=== PATIENT | female | born 1990 | race Caucasian/White ===

== ENCOUNTER 2018-05-07 01:00 | Inpatient (IN) | payer BC, OTHER ==
[2018-05-07] MEDS ORDERED: KETOROLAC TROMETHAMINE INJ 30 MG/ML VIAL IV ONE (01:16)
[2018-05-07] MEDS ORDERED: ONDANSETRON INJ 4 MG/2 ML VIAL IV ONE (01:16)
[2018-05-07] MEDS ORDERED: SODIUM CHLORIDE 0.9% 1000ML 1,000 ML IVS ONE ×3 (01:16→13:25)
--- NOTE | 2018-05-07 01:20 | ED.PDOC ---
History of Present Illness - General Chief Complaint: GI Problem Stated Complaint: "gallbladder pain", sharp pains Time Seen by Provider: 05/07/18 01:15 Information Source: patient Exam Limitations: no limitations - History of Present Illness Initial Comments: patient comes in today with 3 hour history of severe right upper quadrant abdominal pain. The pain is sharp and radiates to the epigastric area with associated nausea and emesis. Patient states the pain is severe, 10/10. A week ago patient had a similar attack and was diagnosed with cholelithiasis and pancreatitis. She was admitted at another facility overnight. At that time the pain subsided and the pancreatitis resolved. The patient was not happy with the surgeon at that facility and had wanted to have her gallbladder removed here instead. Patient was doing well until about 10 PM this evening when she had another attack. Patient has had no fever but some subjective chills. Patient had normal bowel movement today with no diarrhea or constipation. Patient is otherwise healthy and has no medical history. Patient is on control but is currently on her menses and is 10 months . Patient does not smoke, drink, or take illicit substances. Abdominal Pain Onset Location: RUQ Pain Radiation: epigastric Quality: severe, sharpness Timing/Duration: 1-3 hours Improving Factors: nothing Worsening Factors: nothing Associated Symptoms: fever/chills, nausea/vomiting Review of Systems - Review of Systems Constitutional: States: chills. Denies: diaphoresis, fever, malaise EENTM: States: no symptoms reported. Denies: eye pain, ear pain, nose pain, throat pain Respiratory: States: no symptoms reported. Denies: cough, short of breath, wheezing Cardiology: States: no symptoms reported. Denies: chest pain, edema, palpitations, syncope Gastrointestinal/Abdominal: States: see HPI, abdominal pain, nausea. Denies: constipation, diarrhea, vomiting Genitourinary: States: no symptoms reported Musculoskeletal: States: no symptoms reported Skin: States: no symptoms reported Neurological: States: no symptoms reported Past Medical History (General) - Patient Medical History Hx Asthma: No Hx Diabetes: No Hx of HIV: No Surgical History: appendectomy, other - Vaccination History Hx Tetanus, Diphtheria Vaccination: No Hx Influenza Vaccination: No Hx Pneumococcal Vaccination: No - Social History Hx Tobacco Use: No Hx Alcohol Use: No Hx Depression: No - Female History Patient is a Female of Child Bearing Age (10 -59 yrs old): Yes Family Medical History - Family History Mother Family History: Unknown Physical Exam - Physical Exam General Appearance: Alert, Obvious distress Eyes, Ears, Nose, Throat Exam: PERRL/EOMI, TMs normal, pharynx normal Neck: non-tender, full range of motion, supple, normal inspection Respiratory: chest non-tender, lungs clear, normal breath sounds, no respiratory distress Cardiovascular/Chest: normal peripheral pulses, no edema, no gallop, no JVD, no murmur Peripheral Pulses: No deficit Gastrointestinal/Abdominal: other - soft, distended with normal BS, TTP to the RUQ and epigastrum with no rebound or guarding Extremity: normal range of motion Neurologic: alert, oriented x 3 Progress - Progress Progress: 05/07/18 02:13 Patient Name: ASHLEY HERNANDEZ Gender: Female Date of : 1990 Referring Physician: DON BOYLE Organization: [facility] Accession Number: [id number] Requested Date: May 07, 2018 01:16 Report Status: Final Requested Procedure: 1 Procedure Description: Abdomen w/o Contrast Modality: CT Findings Reporting MD: Ari Sanchez Fellow MD: Not available Dictation Time: Security Guard Supervisor: Not available Tableau Lead Date: CT ABDOMEN WITHOUT IV CONTRAST Exam date: 05/07/2018 1:16 AM CDT Comparison: None Indication: Right upper quadrant pain, known cholelithiasis Technique: Multiple helical axial images were obtained through the abdomen without intravenous contrast. Sagittal and coronal reformatted images are reviewed as well. All CT scans at this facility use dose modulation, iterative reconstruction, and/or weight-based dosing when appropriate to reduce radiation dose to as low as reasonably achievable. Findings: Lung bases: Unremarkable. Liver: Homogenous attenuation is demonstrated. Liver appears mildly enlarged. Gallbladder/biliary: Gallbladder appears unremarkable. No calcified gallstones. No evidence of biliary ductal dilatation. Pancreas: Unremarkable. Spleen: Unremarkable. Adrenals: Unremarkable. Kidneys and ureters: No evidence of renal or ureteral stones. No hydronephrosis. Bowel: No evidence of bowel obstruction. No bowel wall thickening. Peritoneum: No free air. No significant free fluid. Lymph nodes: Unremarkable. Radiology [employer] [address] [place] [address], [place] T [phone] F [phone] [email or web address] Report exported on May 07, 2018 02:13:17 -0500 - Page 2 of 2 Vasculature: A few surgical clips near the right iliac vessels are noted. Soft tissues: Unremarkable. Bones: Unremarkable. Impression: No obvious acute process within the abdomen 05/07/18 01:16 Sodium Chloride 0.9% 1000ML [Ns 1000 ml] 1,000 ml IVS ONCE 05/07/18 01:20 AMYLASE Stat COMPLETE METABOLIC PROFILE Stat LIPASE Stat Laboratory Results WBC 9.3 K/mm3 (4.8-10.8) 05/07/18 01:20 RBC 4.69 M/mm3 (4.20-5.40) 05/07/18 01:20 Hgb 13.0 gm/dL (12.0-16.0) 05/07/18 01:20 Hct 38.7 % (36.0-47.0) 05/07/18 01:20 MCV 82.5 fl (81.0-99.0) 05/07/18 01:20 MCH 27.8 pg (27.0-31.0) 05/07/18 01:20 MCHC 33.7 g/dL (33.0-37.0) 05/07/18 01:20 RDW 13.6 % (11.5-14.5) 05/07/18 01:20 Plt Count 168 K/mm3 (130-400) a 05/07/18 01:20 MPV 10.0 fl (7.40-10.4) 05/07/18 01:20 Absolute Neuts (auto) 6.40 K/uL (1.8-6.8) 05/07/18 01:20 Absolute Lymphs (auto) 2.40 K/uL (1.0-3.4) 05/07/18 01:20 Absolute Monos (auto) 0.40 K/uL (0.2-0.8) 05/07/18 01:20 Absolute Eos (auto) 0.10 K/uL (0.0-0.4) 05/07/18 01:20 Absolute Basos (auto) 0.10 K/uL (0.0-0.1) 05/07/18 01:20 Neutrophils % 68.5 % (42.0-78.0) 05/07/18 01:20 Lymphocytes % 25.1 % (20.0-50.0) 05/07/18 01:20 Monocytes % 4.6 % (2.0-9.0) 05/07/18 01:20 Eosinophils % 0.8 % (1.0-5.0) L 05/07/18 01:20 Basophils % 1.0 % (0.0-2.0) 05/07/18 01:20 Sodium 140 mmol/L (135-145) 05/07/18 01:20 Potassium 3.6 mmol/L (3.6-5.0) 05/07/18 01:20 Chloride 104 mmol/L (101-111) 05/07/18 01:20 Carbon Dioxide 27 mmol/L (21-31) 05/07/18 01:20 Anion Gap 12.6 (12-18) 05/07/18 01:20 BUN 17 mg/dL (7-18) 05/07/18 01:20 Creatinine 0.71 mg/dL (0.6-1.3) 05/07/18 01:20 BUN/Creatinine Ratio 23.9 (10-20) H 05/07/18 01:20 Random Glucose 112 mg/dL (70-105) H 05/07/18 01:20 Serum Osmolality 281.7 mOsm/L (275-295) 05/07/18 01:20 Calcium 9.9 mg/dL (8.4-10.2) 05/07/18 01:20 Total Bilirubin 0.5 mg/dL (0.2-1.0) 05/07/18 01:20 AST 68 IU/L (10-42) H 05/07/18 01:20 ALT 39 IU/L (10-60) 05/07/18 01:20 Alkaline Phosphatase 93 IU/L (42-121) 05/07/18 01:20 Serum Total Protein 7.5 gm/dL (6.4-8.2) 05/07/18 01:20 Albumin 4.5 g/dl (3.2-5.5) 05/07/18 01:20 Globulin 3.0 gm/dL (2.3-3.5) 05/07/18 01:20 Albumin/Globulin Ratio 1.5 (1.1-1.9) 05/07/18 01:20 Amylase 834 U/L (28-100) H* 05/07/18 01:20 Serum HCG, Qual Negative 05/07/18 01:20 05/07/18 02:24 called for admission for pancreatitis. Departure - Departure Clinical Impression: Pancreatitis Qualifiers: Chronicity: acute Pancreatitis type: biliary Acute pancreatitis complication: no infection or necrosis Qualified Code(s): K85.10 - Biliary acute pancreatitis without necrosis or infection Cholelithiasis without obstruction Qualifiers: Cholelithiasis location: gallbladder Cholecystitis presence: without cholecystitis Qualified Code(s): K80.20 - Calculus of gallbladder without cholecystitis without obstruction Disposition: Admit Patient Condition: Fair Departure Forms: ED Discharge - Pt. Copy, Patient Portal Self Enrollment Diet: other Referrals: JACKI CASON [Primary Care Provider] - 1-2 Weeks
--- NOTE | 2018-05-07 02:11 | CT ---
CT ABDOMEN WITHOUT IV CONTRAST Exam date: 05/07/2018 1:16 AM CDT Comparison: None Indication: Right upper quadrant pain, known cholelithiasis Technique: Multiple helical axial images were obtained through the abdomen without intravenous contrast. Sagittal and coronal reformatted images are reviewed as well. All CT scans at this facility use dose modulation, iterative reconstruction, and/or weight-based dosing when appropriate to reduce radiation dose to as low as reasonably achievable. Findings: Lung bases: Unremarkable. Liver: Homogenous attenuation is demonstrated. Liver appears mildly enlarged. Gallbladder/biliary: Gallbladder appears unremarkable. No calcified gallstones. No evidence of biliary ductal dilatation. Pancreas: Unremarkable. Spleen: Unremarkable. Adrenals: Unremarkable. Kidneys and ureters: No evidence of renal or ureteral stones. No hydronephrosis. Bowel: No evidence of bowel obstruction. No bowel wall thickening. Peritoneum: No free air. No significant free fluid. Lymph nodes: Unremarkable. Vasculature: A few surgical clips near the right iliac vessels are noted. Soft tissues: Unremarkable. Bones: Unremarkable. Impression: No obvious acute process within the abdomen. Electronically signed by: Ari Sanchez MD 05/07/2018 2:09 AM CDT
[2018-05-07] MEDS ORDERED: fentaNYL CITRATE INJ 50 MCG/ML AMP IV ONE (02:17)
[2018-05-07] MEDS ORDERED: ONDANSETRON INJ 4 MG/2 ML VIAL IV PRN (02:42)
[2018-05-07] MEDS ORDERED: MORPHINE SULFATE INJ 10 MG/ML VIAL IV PRN (02:42)
[2018-05-07] MEDS ORDERED: SODIUM CHLORIDE 0.9% (FLUSH) 10 ML SYG IV PRN (02:42)
[2018-05-07] MEDS ORDERED: KETOROLAC TROMETHAMINE INJ 30 MG/ML VIAL IV PRN (02:50)
[2018-05-07] MEDS ORDERED: PROMETHAZINE HCL INJ 25 MG in SODIUM CHLORIDE 0.9% 50ML 50 ML IVPB PRN (02:58)
[2018-05-07] MEDS ORDERED: IV SET AND CAP CHANGE INJ INJ SCH (03:00)
[2018-05-07] MEDS: KCL 20MEQ/0.45% NS 1,000 ML IVS PRN ×3 (03:15→13:02)
[2018-05-07 10:23] VITALS: O2SAT 99
[2018-05-07 11:10] VITALS: BP 99/63; TEMP 97.1
--- NOTE | 2018-05-07 11:16 | US ---
EXAM DESCRIPTION: Abdomen,Limited: ULTRASOUND. CLINICAL HISTORY: acute pancreatitis; hx cholelithiasis. COMPARISON: CT abdomen 05/07/2018. Ultrasound abdomen April 26, 2018. TECHNIQUE: Transabdominal scannin-dimensional and Doppler modes. FINDINGS: Gallbladder: Contracted with multiple echogenic stones with acoustic shadowing. Largest measurable stones are 5.5 and 5.4 mm. No fluid around the gallbladder. No wall thickening. 1.6 mm. Non-tender with transducer pressure. Common bile duct: caliber 4.0 mm within normal limits. Liver: Normal echogenicity; contour liver capsule smooth where seen. No fluid around the liver. Intrahepatic biliary ducts normal caliber. Doppler hepatopedal flow portal vein.. Long axis right lobe 21.9 cm. No ascites. Pancreas: normal size and echogenicity. Duct not seen. Proximal abdominal aorta: 1.6 cm. Normal caliber.. IVC: visualized and normal caliber. Right kidney: long axis measures 11.2 cm. Normal Echogenicity. Normal cortical thickness. No hydronephrosis IMPRESSION: 1. Gallbladder contracted with multiple stones representing cholelithiasis. No wall thickening or surrounding fluid. Nontender with transducer pressure. 2. Moderate hepatomegaly with normal echogenicity. Normal intrahepatic ducts. Normal vascularity. Smooth capsule. No ascites. 3. Normal ultrasound of the pancreas and right kidney. Normal caliber of the proximal aorta and the IVC. Electronically signed by: Josep Ricketts MD 05/07/2018 11:15 AM CDT
--- NOTE | 2018-05-24 11:38 | HP ---
SUPERVISING PHYSICIAN: Ryan Cheney M.D. DISCHARGE DIAGNOSES: 1. Acute pancreatitis secondary to cholelithiasis clinically improving with pancreatic enzymes returning to baseline status. No signs of cholecystitis. HISTORY OF PRESENT ILLNESS: Ms. Walters is a 27 year-old female patient that presented to the Emergency Room initially on 05/07/18 with complaints of gallbladder pain. She had noted that 3 hours prior to admission she had severe right upper quadrant abdominal pain. She noted the pain was sharp and radiating up to epigastric region and resulted in some nausea and emesis. She noted that she had had similar pain a week ago while at work and was worked up at [facility] as an inpatient and found to have cholelithiasis and pancreatitis. At that time, she was admitted overnight. Her pain subsided. Pancreatitis resolved. The patient was not happy with the surgeon at [facility] and requested to be discharged to have consultation with Dr. Strong in the coming week. The patient noted that she was doing well since discharge up until about 10:00 on the evening of admission when she had another attack. She denied any fevers, chills, any significant alcohol usage. She had just eaten supper with chicken fajitas after which time she started experiencing more pains. The patient has no significant medical history. She is 10 months and is on control, and is currently on her menses. LABORATORY: Workup in the [facility] showed she had a normal white count. No left shift. Chemistries showed normal electrolytes with a bilirubin of 0.5, AST was slightly elevated at 68. Initial amylase showed to be 834 with lipase at 2558. Serum HCG was negative. Repeat pancreatic enzymes showed that by discharge her enzymes were returning to baseline status with her lipase being at 843. There were no microbiology specimens submitted. RADIOLOGY: Radiology initially in the [facility] she had an abdominal CT and per radiology interpretation there was no obvious acute process within the abdomen. The pancreas was noted to be normal on ultrasound. Her common bile duct was within normal limits at 4 mm. There was no wall thickening. Stones measured between 5.5 and 5.4 mm. HOSPITAL COURSE: The patient in the [facility] was given Toradol with improvement of her symptoms and she was pain free, however given her history Dr. Carrero requested the patient be placed in Observation for treatment of acute pancreatitis with anticipation of having a consultation with Dr. Strong. She was started on fluids, made NPO after admission and on the morning of admission had an ultrasound completed. Again the ultrasound showed the gallbladder was contracted with multiple stones representing cholelithiasis but no wall thickening or surrounding fluid. There was note of non-tenderness on pressure. The pancreas was noted to be normal on ultrasound. Her common bile duct was within normal limits at 4 mm. There was no wall thickening. Stones measured between 5.5 and 5.4 mm. After ultrasound, the patient was continued on fluids and allowed to eat lunch. Before that, her enzymes were once repeated at lunch showing that her lipase had begun to come down from 2558 to 1457. Amylase had slightly increased up to 1330. The patient was without any pain and without any symptoms. No nausea or vomiting. Was not requiring any pain management. She was ambulating without any problems and she had tolerated lunch. After lunch at 5:00, once again pancreatic enzymes were collected and it was showing to return to baseline with lipase being at 843 and amylase going down at 890. The patient again was without any symptoms. Was requiring no pain management and was felt to be clinically stable. After discussion with Dr. Strong who was not assistant plant control operator at time of admission and no surgical crew available over the weekend as well as there is no assistant plant control operator until Thursday, Dr. Strong was in agreement that the patient, if she was showing no signs or symptoms of acute pancreatitis and was tolerating a fat free diet, could be discharged home to be seen in consultation on Thursday in the office. ASSESSMENT: 1. Acute pancreatitis secondary to cholelithiasis with pancreatic enzymes returning to normal limits with no signs of acute pancreatitis at time of discharge. 2. Cholelithiasis as noted on repeat sonogram of the gallbladder with a normal common bile duct and no signs of acute cholecystitis. 3. Ten months on menses. PLAN: The patient is showing to be clinically stable and again her enzymes returning to baseline status was felt clinically well enough to be discharged. She was discharged with instructions to encourage fluids to prevent dehydration. She was to call Dr. Strong's office on Thursday to schedule a followup appointment. She was told to return to the [facility] should she have returning symptoms. Diet at discharge was absolutely no fat diet. Activity is increase as tolerated. Medications at discharge included: 1. Toradol 10 mg tablets every 4 hours as needed for pain. 2. Nexium [id number]. Condition at discharge was stable and improved. #[id number] [facility]
--- NOTE | 2018-05-24 16:20 | DS ---
SUPERVISING PHYSICIAN: Ryan Cheney M.D. DISCHARGE DIAGNOSES: 1. Acute pancreatitis secondary to cholelithiasis clinically improving with pancreatic enzymes returning to baseline status. No signs of cholecystitis. HISTORY OF PRESENT ILLNESS: Ms. Walters is a 27 year-old female patient that presented to the Emergency Room initially on 05/07/18 with complaints of gallbladder pain. She had noted that 3 hours prior to admission she had severe right upper quadrant abdominal pain. She noted the pain was sharp and radiating up to epigastric region and resulted in some nausea and emesis. She noted that she had had similar pain a week ago while at work and was worked up at [place] as an inpatient and found to have cholelithiasis and pancreatitis. At that time, she was admitted overnight. Her pain subsided. Pancreatitis resolved. The patient was not happy with the surgeon at [facility] and requested to be discharged to have consultation with Dr. Strong in the coming week. The patient noted that she was doing well since discharge up until about 10:00 on the evening of admission when she had another attack. She denied any fevers, chills, any significant alcohol usage. She had just eaten supper with chicken fajitas after which time she started experiencing more pains. The patient has no significant medical history. She is 10 months and is on control, and is currently on her menses. LABORATORY: Workup in the E. R. showed she had a normal white count. No left shift. Chemistries showed normal electrolytes with a bilirubin of 0.5, AST was slightly elevated at 68. Initial amylase showed to be 834 with lipase at 2558. Serum HCG was negative. Repeat pancreatic enzymes showed that by discharge her enzymes were returning to baseline status with her lipase being at 843. There were no microbiology specimens submitted. RADIOLOGY: Radiology initially in the E. R., she had an abdominal CT and per radiology interpretation there was no obvious acute process within the abdomen. The pancreas was noted to be normal on ultrasound. Her common bile duct was within normal limits at 4 mm. There was no wall thickening. Stones measured between 5.5 and 5.4 mm. HOSPITAL COURSE: The patient in the E. R. was given Toradol with improvement of her symptoms and she was pain free, however given her history Dr. Carrero requested the patient be placed in Observation for treatment of acute pancreatitis with anticipation of having a consultation with Dr. Strong. She was started on fluids, made NPO after admission and on the morning of admission had an ultrasound completed. Again the ultrasound showed the gallbladder was contracted with multiple stones representing cholelithiasis but no wall thickening or surrounding fluid. There was note of non-tenderness on pressure. The pancreas was noted to be normal on ultrasound. Her common bile duct was within normal limits at 4 mm. There was no wall thickening. Stones measured between 5.5 and 5.4 mm. After ultrasound, the patient was continued on fluids and allowed to eat lunch. Before that, her enzymes were once repeated at lunch showing that her lipase had begun to come down from 2558 to 1457. Amylase had slightly increased up to 1330. The patient was without any pain and without any symptoms. No nausea or vomiting. Was not requiring any pain management. She was ambulating without any problems and she had tolerated lunch. After lunch at 5:00, once again pancreatic enzymes were collected and it was showing to return to baseline with lipase being at 843 and amylase going down at 890. The patient again was without any symptoms. Was requiring no pain management and was felt to be clinically stable. After discussion with Dr. Strong who was not substation designer at time of admission and no surgical crew available over the weekend as well as there is no substation designer until Thursday, Dr. Strong was in agreement that the patient, if she was showing no signs or symptoms of acute pancreatitis and was tolerating a fat free diet, could be discharged home to be seen in consultation on Thursday in the office. ASSESSMENT: 1. Acute pancreatitis secondary to cholelithiasis with pancreatic enzymes returning to normal limits with no signs of acute pancreatitis at time of discharge. 2. Cholelithiasis as noted on repeat sonogram of the gallbladder with a normal common bile duct and no signs of acute cholecystitis. 3. Ten months on menses. PLAN: The patient is showing to be clinically stable and again her enzymes returning to baseline status was felt clinically well enough to be discharged. She was discharged with instructions to encourage fluids to prevent dehydration. She was to call Dr. Strong's office on Thursday to schedule a followup appointment. She was told to return to the E. R. should she have returning symptoms. Diet at discharge was absolutely no fat diet. Activity is increase as tolerated. Medications at discharge included: 1. Toradol 10 mg tablets every 4 hours as needed for pain. 2. Nexium [id number]. Condition at discharge was stable and improved. #[id number] [facility]
--- NOTE | 2018-05-26 23:26 | HP ---
SUPERVISING PHYSICIAN: Ryan Cheney M.D. CHIEF COMPLAINT: Acute abdominal pain. HISTORY OF PRESENT ILLNESS: Ms. Walters is a 27 year-old female patient that presented to the Emergency Room with complaints of gallbladder pain. She had noted that 3 hours prior she had severe right upper quadrant abdominal pain. She noted the pain was sharp and radiating up to epigastric region and resulted in some nausea and emesis. She noted that she had had similar pain a week ago while at work and was worked up at [facility] as an inpatient and found to have cholelithiasis and pancreatitis. At that time, she was admitted overnight. Her pain subsided. Pancreatitis resolved. The patient was not happy with the surgeon at [facility] and requested to be discharged to have consultation with Dr. Strong in the coming week. The patient noted that she was doing well since discharge up until about 2200 when she had another attack. She denied any fevers, chills, any significant alcohol usage. She had just eaten supper which she states was chicken fajitas after which time she started experiencing more pains. The patient has no other significant medical history but she is 10 months and is on control, and is currently on her menses. PAST MEDICAL HISTORY: 1. History of pancreatitis. 2. Cholecystitis. PAST SURGICAL HISTORY: No surgical history listed. HOME MEDICATIONS: No chronic medications. ALLERGIES: NO KNOWN ALLERGIES. FAMILY HISTORY: Noncontributory. SOCIAL HISTORY: Mrs. Walters is living in [facility]. 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 She has never smoked tobacco nad drinks ralrey on at social occasions. She denies using illicit drugs. REVIEW OF SYSTEMS: CONSTITUTIONAL: Denied any fevers, chills or general malaise. HEENT: No headache, sore throat, nasal congestion, ear aches. RESPIRATORY: No shortness of breath, cough or wheezing. CARDIOVASCULAR: No chest pains, palpitations or syncopal episodes. GASTROINTESTINAL: As noted in History of Present Illness. Acute right upper quadrant pain on admission. GENITOURINARY: No dysuria, hematuria, polyuria or other urinary symptoms. MUSCULOSKELETAL: No complaints. NEUROLOGIC: No syncopal episodes. No ataxia. No seizures. No other neurological deficits reported. PHYSICAL EXAMINATION: VITAL SIGNS: Temperature 97.8, pulse 90, blood pressure 123/68, respirations 18 , satting 99% on room air. GENERAL: On admission to the Medical/Surgical floor, the patient appeared to be comfortable in no acute distress. Well hydrated, well nourished. HEENT: Tympanic membranes are clear bilaterally. Oropharynx is pink and moist without any lesions. NECK: Supple, non-tender with full range of motion. There is no jugular venous distention. CHEST: Lungs are clear to auscultation without any rhonchi, wheezing or rales. CARDIOVASCULAR: Regular rate and rhythm without appreciable murmurs, gallops, or rubs. ABDOMEN: Soft, nondistended with positive bowel sounds. There was some mild tenderness to palpation in the right upper quadrant and epigastrium but no rebound or no guarding. EXTREMITIES: No clubbing, cyanosis or edema. NEUROLOGIC: She is alert and oriented times three. LABORATORY: CBC on admission showed a normal white count at 9,300 as well as hemoglobin 13, hematocrit 30.7, platelet count 168,000. Differential showed to be without any shift. Electrolytes on admission were normal. Liver functions showed just an elevated alkaline phosphatase at 68. Her amylase was elevated at 834 Lipase is elevated at 2558. Serum HCG being negative. RADIOLOGY: Abdominal CT prior to admission to the Emergency Room per radiology interpretation showed no obvious acute process in the abdomen. She has an abdominal ultrasound p[ending. ASSESSMENT: 1. Acute pancreatitis secondary to cholelithiasis with pancreatic enzymes returning to normal limits with no signs acute clinical signs of pancreatitis. 2. Chronic cholelithiasis with concerns for acute cholecystis. 3. Ten months on menses. PLAN: The patient is going to be placed in Observation for concern for acute cholecystitis versus pancreatitis. On admission to the Medical/Surgical floor the patient was without any symptoms. Shewill be started on a clear liquid diet in the morning and advanced throughout the day.if tolerating diet without any nausea or vomiting. . Will continue to monitor the patient and should she continue to show stability, the plan is to discharger her home with continued outpatient management to followup with Dr. Strong on Thursday after discharge. Anticipate stay to be less than 24 hours and until discharge, will continue to monitor and treat appropriately. #[id number] [facility]
--- NOTE | 2018-05-26 23:30 | DS ---
SUPERVISING PHYSICIAN: Ryan Cheney M.D. DISCHARGE DIAGNOSES: 1. Acute pancreatitis secondary to cholelithiasis clinically improving with pancreatic enzymes returning to baseline status. No signs of cholecystitis. HISTORY OF PRESENT ILLNESS: Ms. Walters is a 27 year-old female patient that presented to the Emergency Room initially on 05/07/18 with complaints of gallbladder pain. She had noted that 3 hours prior to admission she had severe right upper quadrant abdominal pain. She noted the pain was sharp and radiating up to epigastric region and resulted in some nausea and emesis. She noted that she had had similar pain a week ago while at work and was worked up at [place] as an inpatient and found to have cholelithiasis and pancreatitis. At that time, she was admitted overnight. Her pain subsided. Pancreatitis resolved. The patient was not happy with the surgeon at [place] and requested to be discharged to have consultation with Dr. Strong in the coming week. The patient noted that she was doing well since discharge up until about 10:00 on the evening of admission when she had another attack. She denied any fevers, chills, any significant alcohol usage. She had just eaten supper with chicken fajitas after which time she started experiencing more pains. The patient has no significant medical history. She is 10 months and is on control, and is currently on her menses. LABORATORY: Workup in the E. R. showed she had a normal white count. No left shift. Chemistries showed normal electrolytes with a bilirubin of 0.5, AST was slightly elevated at 68. Initial amylase showed to be 834 with lipase at 2558. Serum HCG was negative. Repeat pancreatic enzymes showed that by discharge her enzymes were returning to baseline status with her lipase being at 843. There were no microbiology specimens submitted. RADIOLOGY: Radiology initially in the E. R., she had an abdominal CT and per radiology interpretation there was no obvious acute process within the abdomen. The pancreas was noted to be normal on ultrasound. Her common bile duct was within normal limits at 4 mm. There was no wall thickening. Stones measured between 5.5 and 5.4 mm. HOSPITAL COURSE: The patient in the E. R. was given Toradol with improvement of her symptoms and she was pain free, however given her history Dr. Carrero requested the patient be placed in Observation for treatment of acute pancreatitis with anticipation of having a consultation with Dr. Strong. She was started on fluids, made NPO after admission and on the morning of admission had an ultrasound completed. Again the ultrasound showed the gallbladder was contracted with multiple stones representing cholelithiasis but no wall thickening or surrounding fluid. There was note of non-tenderness on pressure. The pancreas was noted to be normal on ultrasound. Her common bile duct was within normal limits at 4 mm. There was no wall thickening. Stones measured between 5.5 and 5.4 mm. After ultrasound, the patient was continued on fluids and allowed to eat lunch. Before that, her enzymes were once repeated at lunch showing that her lipase had begun to come down from 2558 to 1457. Amylase had slightly increased up to 1330. The patient was without any pain and without any symptoms. No nausea or vomiting. Was not requiring any pain management. She was ambulating without any problems and she had tolerated lunch. After lunch at 5:00, once again pancreatic enzymes were collected and it was showing to return to baseline with lipase being at 843 and amylase going down at 890. The patient again was without any symptoms. Was requiring no pain management and was felt to be clinically stable. After discussion with Dr. Strong who was not business operations coordinator at time of admission and no surgical crew available over the weekend as well as there is no business operations coordinator until Thursday, Dr. Strong was in agreement that the patient, if she was showing no signs or symptoms of acute pancreatitis and was tolerating a fat free diet, could be discharged home to be seen in consultation on Thursday in the office. ASSESSMENT: 1. Acute pancreatitis secondary to cholelithiasis with pancreatic enzymes returning to normal limits with no signs of acute pancreatitis at time of discharge. 2. Cholelithiasis as noted on repeat sonogram of the gallbladder with a normal common bile duct and no signs of acute cholecystitis. 3. Ten months on menses. PLAN: The patient is showing to be clinically stable and again her enzymes returning to baseline status was felt clinically well enough to be discharged. She was discharged with instructions to encourage fluids to prevent dehydration. She was to call Dr. Strong's office on Thursday to schedule a followup appointment. She was told to return to the E. R. should she have returning symptoms. Diet at discharge was absolutely no fat diet. Activity is increase as tolerated. Medications at discharge included: 1. Toradol 10 mg tablets every 4 hours as needed for pain. 2. Nexium [id number]. Condition at discharge was stable and improved. #[id number] and [id number] [facility]
== END 2018-05-07 18:15 | disposition home or self-care (01) | DRG 440 ==
LOC: ER 01:00 → OBSVTOIN 02:40 → MS 02:40
PROVIDERS: ADMIT Nurse Practitioner Family; ATTEND Nurse Practitioner Family
DX: K85.10 Biliary acute pancreatitis without necrosis or infection (principal); K80.20 Calculus of gallbladder without cholecystitis without obstruction; Z79.3 Long term (current) use of hormonal contraceptives

== ENCOUNTER 2018-05-14 21:17 | Emergency (ER) | payer BC ==
--- NOTE | 2018-05-14 21:26 | ED.PDOC ---
History of Present Illness - General Chief Complaint: Abdominal Pain Time Seen by Provider: 05/14/18 21:24 Information Source: RN notes reviewed, Vital Signs reviewed Exam Limitations: no limitations Additional Information: 27 YEAR OLD PRESENTS WITH ABDOMINAL PAIN AND INTER SCAPULAR PAIN SINCE THIS EVENING SHE HAS KNOWN HISTORY OF GALL STONES AND CBD STONES HAD BEEN ADMITTED TWICE FOR PANCREATITIS IN [facility] FEW MONTHS DENIES FEVER CHILLS OR DYURIA - History of Present Illness Abdominal Pain Onset Location: RUQ Pain Radiation: back Quality: moderate Timing/Duration: 1 hour Improving Factors: nothing Worsening Factors: nothing Associated Symptoms: back pain, nausea/vomiting Review of Systems - Review of Systems Constitutional: States: no symptoms reported EENTM: States: no symptoms reported Respiratory: States: no symptoms reported Cardiology: States: no symptoms reported Gastrointestinal/Abdominal: States: see HPI Genitourinary: States: no symptoms reported Musculoskeletal: States: no symptoms reported Skin: States: no symptoms reported Neurological: States: no symptoms reported Endocrine: States: no symptoms reported Past Medical History (General) - Patient Medical History Hx Seizures: No Hx Stroke: No Hx Asthma: No Hx of COPD: No Hx Congestive Heart Failure: No Hx Pacemaker: No Hx Hypertension: No Hx Diabetes: No Hx of HIV: No Hx MRSA: No - Vaccination History Hx Tetanus, Diphtheria Vaccination: No Hx Influenza Vaccination: No Hx Pneumococcal Vaccination: No - Social History Hx Tobacco Use: No Hx Alcohol Use: No Hx Substance Use: No Hx Depression: No Hx Physical Abuse: No Hx Emotional Abuse: No Family Medical History - Family History Mother Family History: Unknown Living Status: Still Living Hx Family Asthma: No Hx Family Congestive Heart Failure: No Hx Family Hypertension: No Hx Family Stroke: No Hx Cardiac Disease: No Hx Family Diabetes: No Hx Family Cancer: Yes - Colon tumor Age of Onset (years of age): 56 Father Living Status: Still Living Hx Family Asthma: No Hx Family Congestive Heart Failure: No Hx Family Hypertension: Yes Hx Family Stroke: No Hx Cardiac Disease: No Hx Family Diabetes: No Hx Family Cancer: No Physical Exam - Physical Exam General Appearance: Alert, Anxious Eyes, Ears, Nose, Throat Exam: PERRL/EOMI, normal ENT inspection, TMs normal, pharynx normal Neck: non-tender, full range of motion, supple, normal inspection Respiratory: chest non-tender, lungs clear, normal breath sounds, no respiratory distress Cardiovascular/Chest: normal peripheral pulses, regular rate, rhythm, no edema Peripheral Pulses: 2+ Gastrointestinal/Abdominal: normal bowel sounds, soft, guarding, tenderness Back Exam: normal inspection, no CVA tenderness, no vertebral tenderness Extremity: normal range of motion, non-tender, normal inspection Skin Exam: normal color, warm/dry Progress - Results/Orders Results/Orders: Laboratory Tests 05/14/18 05/14/18 21:18 21:18 WBC 10.0 RBC 4.63 Hgb 12.9 Hct 38.5 MCV 83.2 MCH 27.8 MCHC 33.4 RDW 14.2 Plt Count 193 MPV 9.4 Absolute Neuts (auto) 6.30 Absolute Lymphs (auto) 2.80 Absolute Monos (auto) 0.70 Absolute Eos (auto) 0.10 Absolute Basos (auto) 0.10 Neutrophils % 63.1 Lymphocytes % 28.6 Monocytes % 6.5 Eosinophils % 0.7 L Basophils % 1.1 Sodium 139 Potassium 3.6 Chloride 104 Carbon Dioxide 28 Anion Gap 10.6 L BUN 15 Creatinine 0.65 BUN/Creatinine Ratio 23.1 H Random Glucose 97 Serum Osmolality 278.3 Calcium 9.6 Total Bilirubin 0.4 AST 45 H D ALT 41 Alkaline Phosphatase 111 Serum Total Protein 7.3 Albumin 4.3 Globulin 3.0 Albumin/Globulin Ratio 1.4 Amylase 60 Lipase [address] BLANCA WILL KEEP HER ON CLEAR LIQUIDS TILL SURGERY Departure - Departure Clinical Impression: Gall bladder stones Time of Disposition: 22:09 Disposition: Discharge to Home or Self Care Condition: Fair Departure Forms: ED Discharge - Pt. Copy, Patient Portal Self Enrollment Instructions: DI for Abdominal Pain-Adult Referrals: JACKI CASON [Primary Care Provider] - 1-2 Weeks Home Medications: Ambulatory Orders Ranitidine HCl [Zantac 75] 75 mg PO DAILY 05/14/18
[2018-05-14 21:41] VITALS: O2SAT 99
[2018-05-14] MEDS ORDERED: KETOROLAC TROMETHAMINE INJ 30 MG/ML VIAL IV ONE (21:51)
[2018-05-14 22:50] VITALS: BP 102/64; TEMP 98.4
== END 2018-05-14 22:20 | disposition home or self-care (01) ==
LOC: ER 21:17
DX: K80.20 Calculus of gallbladder without cholecystitis without obstruction (principal)
CPT/HCPCS: 36415; 80053; 82150; 83690; 85025; J1885